=== PATIENT | male | born 1955 | race Caucasian/White ===

== ENCOUNTER 2024-05-03 23:47 | Emergency (ER) | payer MEDICARE, OTHER, SELFPAY ==
[2024-05-03 23:50] VITALS: BP 181/112
--- NOTE | 2024-05-03 23:55 | ED.GENMED ---
History of Present Illness
<LG Lewis - Last Filed: 05/04/24 00:40>
General
Chief Complaint: Male Genito-Urinary Symptoms
Source: patient
Time Seen by Provider: 05/03/24 23:54
Nursing documentation reviewed up to this point in time: agreed with
History of Present Illness
History of Present Illness:
Patient is a 69 year old male presenting to the ED with male symptoms for the past 12 hours. Patient states he hasn't urinated since this morning and is in moderate discomfort. He could not sit still. His last urination was in the morning and
states that was normal. Denies any hematuria. Around noon is when he felt he needed to urinate again. The feeling has only been getting worse with time. It is described as a full sensation for hours. He says it feels like he's had to urinate
constantly for the past 12 hours. He states nothing like this has happened to him before. He denies any dysuria fever sob light headedness abdominal pain flank pain.
Patient has a PMH of vasovagal syncope which he is on meclizine for. He denies tobacco use but admits to occasional alcohol consumption.
Past History
<LG Lewis - Last Filed: 05/04/24 00:40>
Past History
ED Past Medical History: Other (Vasovagal syncope); Negative Cancer, HTN, Hypercholesterolemia or NIDDM
ED Past Surgical History: None
Social History
Tobacco: Non-smoker
Alcohol: Occasional
Personal:
Living: with family
Review of Systems
<LG Lewis - Last Filed: 05/04/24 00:40>
Review of Systems
Constitutional: Reports no symptoms
Respiratory: Reports no symptoms
Cardiac: Reports no symptoms
ABD/GI: Reports no symptoms
: Reports difficulty voiding
Neurological: Reports no symptoms
Phy Exam
<ST JoshuaKAZ - Last Filed: 05/04/24 00:40>
General Physical Exam
General Presentation: moderate distress
General age: appears stated age
General Habitus: normal
General Mental: alert
Cardiovascular Exam
Cardiovascular Exam: regular rate/rhythm, no edema, no gallop, no JVD and no murmur
Pulmonary Exam
Pulmonary Exam: lungs clear, no respiratory distress, no rales, chest non tender, no crackles, no rhonchi, no stridor, no wheezing and no cough
Gastrointestinal Exam
Gastrointestinal Exam: normal bowel sounds, non tender, soft, no organomegaly, no pulsatile mass, non distended and no cva tenderness
Course
<ST JoshuaKAZ - Last Filed: 05/04/24 00:40>
Orders/Labs/Results
Orders:
Orders
05/04/24 00:13
Bladder Scan As Directed
Follow Bladder Retention/Intermittent Cath Algorithm?: Yes
PRN if no void in __ hours: 6
Frequency: Per Retention Algorithm
If Bladder Scan Result >: 400
then:: Straight cath
Straight Cath As Directed
Frequency: Per Retention Algorithm
Additional Instructions: straight cath as needed per acute urinary retention algorithm for 24 hrs
Additional Instructions: for bladder scan greater than 400 mL
05/04/24 00:47
Tamsulosin [Flomax] 0.4 mg PO NOW STA
05/04/24 00:51
Urinalysis Reflex To Culture Urgent
Date Specimen was Collected: 05/04/24
Time Specimen was Collected: 00:49
Urine Microscopic Reflex Cult Urgent
Abnormal Lab Results
05/04/24
00:51
Ur Occult Blood Reflex 2+ A
(Negative)
Vital Signs
Initial and Last Documented VS:
Initial Vital Signs
Temp Pulse Resp BP Pulse Ox
97.8 F 94 24 181/112 97
05/03/24 23:50 05/03/24 23:50 05/03/24 23:50 05/03/24 23:50 05/03/24 23:50
Last Documented Vital Signs
Temp Pulse Resp BP Pulse Ox
97.8 F 94 20 124/57 97
05/03/24 23:50 05/03/24 23:50 05/04/24 00:00 05/04/24 00:55 05/03/24 23:50
<Isaiah Joshi, DO - Last Filed: 05/04/24 01:11>
Orders/Labs/Results
Orders:
Orders
05/04/24 00:13
Bladder Scan As Directed
Follow Bladder Retention/Intermittent Cath Algorithm?: Yes
PRN if no void in __ hours: 6
Frequency: Per Retention Algorithm
If Bladder Scan Result >: 400
then:: Straight cath
Straight Cath As Directed
Frequency: Per Retention Algorithm
Additional Instructions: straight cath as needed per acute urinary retention algorithm for 24 hrs
Additional Instructions: for bladder scan greater than 400 mL
05/04/24 00:47
Tamsulosin [Flomax] 0.4 mg PO NOW STA
05/04/24 00:51
Urinalysis Reflex To Culture Urgent
Date Specimen was Collected: 05/04/24
Time Specimen was Collected: 00:49
Urine Microscopic Reflex Cult Urgent
Abnormal Lab Results
05/04/24
00:51
Ur Occult Blood Reflex 2+ A
(Negative)
Vital Signs
Initial and Last Documented VS:
Initial Vital Signs
Temp Pulse Resp BP Pulse Ox
97.8 F 94 24 181/112 97
05/03/24 23:50 05/03/24 23:50 05/03/24 23:50 05/03/24 23:50 05/03/24 23:50
Last Documented Vital Signs
Temp Pulse Resp BP Pulse Ox
97.8 F 94 20 124/57 97
05/03/24 23:50 05/03/24 23:50 05/04/24 00:00 05/04/24 00:55 05/03/24 23:50
<LG Lewis - Last Filed: 05/04/24 00:40>
MDM/Problems Addressed
Differential Diagnosis Includes:
obstruction, kidney stone, prostatitis, dehydration
MDM/Problems Addressed:
get labs bladder scan and shrestha catheter 1239p update bladder scan 880ml shrestha catheter inserted with immediate relief
<LG Lewis - Last Filed: 05/04/24 00:40>
*Critical Care Note
Total Time (30-74mins, 75-104mins- exclusive of procedures): Not Applicable
ED Attending Note
<LG Lewis - Last Filed: 05/04/24 00:40>
-
Portions of this chart may have been created with voice recognition software.� Occasional wrong word or��sound alike� substitutions may have occurred due to the inherent limitations of voice recognition software.
<Isaiah Joshi DO - Last Filed: 05/04/24 01:11>
ED Attending Note
Patient seen and examined by attending physician: Yes
I performed the substantive portion of visit, reviewed & personally made and approve the management plan that is documented in note by myself or KELLI.: Yes
ED Attending Note:
69-year-old male presents with urinary retention. He has been unable to urinate since this morning. Denies fever, chills, nausea or vomiting. He does report lower abdominal pain. Bladder scan shows over 800 cc of fluid in the bladder. Shrestha
catheter placed and large amount of urine drained into the Shrestha bag. Patient is resting more comfortably. Patient was seen in conjunction with the PA student. I have reviewed and agree with the history and treatment plan presented. On my
independent physical exam, patient is awake, alert, and oriented x3
Discharge Plan
Departure
Patient Disposition: Home (Routine Discharge)
Date of Disposition: 05/04/24
Time of Disposition: 01:08
Patient with high blood pressure during this ER visit?: Yes
Condition: Good
Discharge Problem:
Acute urinary retention
Instructions: How to Care for Your Shrestha Catheter, Male, Urinary Retention (DC), BLOOD PRESSURE
Prescriptions:
New
tamsulosin [Flomax] 0.4 mg capsule
0.4 mg PO DAILY Qty: 7 0RF
No Action
meclizine 25 MG tablet
25 mg PO Q8HPRN PRN (Reason: dizziness) Qty: 15 0RF
ondansetron 4 MG tablet,disintegrating
4 mg PO TIDPRN PRN (Reason: nausea/vomiting) Qty: 15 0RF
Referrals:
Alen Mabry MD [Active] -
Activity Restrictions/Additional Instructions:
It was a pleasure meeting you and taking part in your care. We hope for your continued healing and wellness.
Please read discharge instructions in their entirety. However, they are for general education and may not describe your exact diagnosis at discharge. Information on your ER visit and medical conditions were discussed with you along with appropriate
follow up information...
If indicated, please take your medications as instructed and indicated on discharge paperwork.
Please schedule a follow up appointment as directed. Call to schedule an appointment
Please return to the emergency department with ANY change in, persisting, or worsening of symptoms. If any of your symptoms do not improve, or persist, or become more severe within 6-12 hours, please return to the emergency department for further
care.
Please return to the emergency department if you develop a headache, neck pain/stiffness, fever greater than 100.4F, chest pain, shortness of breath, persistent nausea, vomiting, slurred speech, difficulty walking, numbness/tingling, weakness, signs
of infection or any other symptoms that are worrisome to you.
If you have any questions or concerns please do not hesitate to call the Hospital at or E-mail me directly at [email or web address]
Interventions
Interventions:
*Risk Screen - Suicide Last Done: 05/03/24 23:50
*General Assessment Last Done: 05/04/24 00:02
*Neglect/Abuse Screening Last Done: 05/04/24 00:02
*ED COVID-19 Vaccine History Last Done: 05/04/24 00:02
ED-Male Genitourinary Assessment Last Done: 05/04/24 00:02
Discharge Date and Time
Print Language: PANAMANIAN
[2024-05-04 00:02] VITALS: BMI 30.5
[2024-05-04] MEDS: FLOMAX 0.4 MG PO (00:51)
[2024-05-04 00:55] VITALS: BP 124/57
[2024-05-04 01:04] LABS: Urine Albumin Negative (Neg - Trace); Urine Bilirubin Negative (Negative); Urine Character Clear (Clear); Urine Color Yellow; Urine Glucose Negative (Negative); Urine Ketone Negative (Negative); Urine Leukocyte Negative (Negative); Urine Nitrite Negative (Negative); Urine Occult Blood 2+ (Negative); Urine Urobilinogen Negative (Neg - 1+)
[2024-05-04 01:17] LABS: Urine Mucus Few; Urine Squamous Cell 0-2 /LPF (Few)
[2024-05-04 01:18] LABS: Urine White Cell 0-2 /HPF (0-5)
[2024-05-04 01:19] LABS: Urine Bacteria Few (Negative)
[2024-05-04 01:51] VITALS: BP 135/65
[2024-05-04 02:00] VITALS: BP 131/63
== END 2024-05-04 02:24 | disposition home or self-care (01) ==
LOC: EMR 23:47
PROVIDERS: EMERGENCY PHYSICIAN Student in an Organized Health Care Education/Training Program
DX: R33.9 Retention of urine, unspecified (principal); E11.9 Type 2 diabetes mellitus without complications; I10 Essential (primary) hypertension
CPT/HCPCS: 99282; 51702; 81003; 81015

== ENCOUNTER → 2024-05-06 15:54 | Outpatient (REF) | payer MEDICARE, OTHER, SELFPAY | LOC: REG 15:54 | PROVIDERS: ATTENDING PHYSICIAN Specialist | DX: Z12.5 Encounter for screening for malignant neoplasm of prostate (principal); D40.0 Neoplasm of uncertain behavior of prostate | CPT/HCPCS: 36415; 84153; 84154 ==

== ENCOUNTER → 2024-05-14 11:07 | Outpatient (REF) | payer MEDICARE, OTHER, SELFPAY | LOC: MRI 3T 11:07 | PROVIDERS: ATTENDING PHYSICIAN Specialist; FAMILY PHYSICIAN Family Medicine | DX: Z12.5 Encounter for screening for malignant neoplasm of prostate (principal) | CPT/HCPCS: 72197; A9575 ==

== ENCOUNTER → 2024-05-22 16:40 | Outpatient (REF) | payer MEDICARE, OTHER, SELFPAY | LOC: CLAB 16:40 | PROVIDERS: ATTENDING PHYSICIAN Specialist | DX: R97.20 Elevated prostate specific antigen [PSA] (principal) | CPT/HCPCS: 88305; 88344 ==

== ENCOUNTER 2024-06-10 06:28 | Day surgery (SDC) | payer MEDICARE, OTHER, SELFPAY ==
[2024-06-10] VITALS (17 sets, daily range): BP systolic 103–135; BP diastolic 61–74; BMI 32.3
[2024-06-10] MEDS: ZOFRAN 4 MG IV (10:24)
[2024-06-10] MEDS: DILAUDID 0.25 MG IV (10:26)
[2024-06-10] MEDS: COLACE PO ×2 (16:00→16:51)
--- NOTE | 2024-06-10 16:43 | PTCARENOTE ---
Pt arrived to [facility] from PACU s/p TURP. Pt AAOx3, 3 way Samuels CBI infusing and draining pink tinged urine. Pt states no pain at this time. Oriented to call andino and room, bed locked and in lowest position, call andino within reach.
[2024-06-10] MEDS: CASODEX 50 MG PO (17:26)
[2024-06-11 04:13] VITALS: BP 111/58
--- NOTE | 2024-06-11 06:30 | PTCARENOTE ---
CBI and shrestha catheter d/c per orders at 0605. Pt given time, amount and urinal.
[2024-06-11 08:06] VITALS: BP 124/65
[2024-06-11] MEDS: COLACE 100 MG PO ×2 (08:16→11:14)
--- NOTE | 2024-06-11 10:37 | W.PN.URO.CBU ---
Today's Communication / Plan
-
Home with or w/o Samuels
Assessment / Plan
-
stable
voiding trial in progress
Diagnosis
-
Date of Service: June 11, 2024
-
Patient Diagnosis: prostate cancer and urinary retention s/p TURP
Post Op Day: 1
Subjective
-
Samuels out ~ 6 AM: 'I've gone about 200 ml since'
Objective
-
Vital Signs
Temp Pulse Resp BP Pulse Ox
97.8 F 79 15 124/65 98
06/11/24 08:06 06/11/24 08:06 06/11/24 08:06 06/11/24 08:06 06/11/24 08:06
Intake and Output
06/10/24 06/11/24 06/12/24
06:59 06:59 06:59
Intake Total 780 / 780
Output Total 1650 / 1650
Balance -870 / -870
Intake:
Oral fluids 480 / 480
IV fluids (Total) 300 / 300
normosol 300 / 300
Output:
True Urine Output from CBI 1650 / 1650
Physical Exam
-
General - well developed, well nourished, no acute distress
Care Review
Data Reviewed
Discussed with: Family
--- NOTE | 2024-06-11 10:49 | CM ---
Met with pt and his at bedside
Pt reports he lives with his in a 2 story home; 4 steps to enter, FF set-up
Independent, active, drives
DME - none
SNF/HH - no past hx
Has ride home at discharge
PCP - Dr Johnson
Pharm - [facility]
Plan - anticipate home no needs
[2024-06-11] MEDS: URECHOLINE 50 MG PO (11:11)
[2024-06-11] MEDS: PREVNAR 20 0.5 ML IM (11:12)
[2024-06-11 12:51] VITALS: BP 134/71
== END 2024-06-11 13:57 | disposition home or self-care (01) ==
LOC: SDS 06:28
PROVIDERS: ATTENDING PHYSICIAN Specialist
DX: C61 Malignant neoplasm of prostate (principal); N40.1 Benign prostatic hyperplasia with lower urinary tract symptoms; R33.9 Retention of urine, unspecified; N30.80 Other cystitis without hematuria
CPT/HCPCS: 52601; 88305; 90677; 93005; G0009